=== PATIENT | female | born 1995 | race Two or more races ===

== ENCOUNTER 2018-06-06 21:43 | Emergency (ER) | payer OTHER ==
[~2018-06-06] VITALS: Ht 160 cm; Wt 136.5 kg
[~2018-06-06 21:43] MED LIST: MULT1CAP15 PO; SERT50TA PO
[2018-06-06 21:59] VITALS: BP 138/98
[2018-06-06] MEDS ORDERED: PRED20TA PO (22:11)
[2018-06-06] MEDS ORDERED: VALA10005 PO (22:11)
--- NOTE | 2018-06-06 22:11 | PHYS DOC ---
Past History Past Medical History: Anxiety, Depression Past Surgical History: No Surgical History Smoking: Less than 1pk/day Alcohol Use: Occasionally Drug Use: Marijuana Adult General Chief Complaint Chief Complaint: FACE PROBLEM HPI HPI Patient is a [age] year old [sex] who presents with [] Review of Systems Review of Systems Constitutional: Denies fever or chills [] Eyes: Denies change in visual acuity, redness, or eye pain [] HENT: Denies nasal congestion or sore throat [] Respiratory: Denies cough or shortness of breath [] Cardiovascular: No additional information not addressed in HPI [] GI: Denies abdominal pain, nausea, vomiting, bloody stools or diarrhea [] : Denies dysuria or hematuria [] Musculoskeletal: Denies back pain or joint pain [] Integument: Denies rash or skin lesions [] Neurologic: Denies headache, focal weakness or sensory changes [] Endocrine: Denies polyuria or polydipsia [] All other systems were reviewed and found to be within normal limits, except as documented in this note. Allergies Allergies Allergies Coded Allergies Type Severity Reaction Last Updated Verified No Known Drug Allergies 06/05/13 No Physical Exam Physical Exam Constitutional: Well developed, well nourished, no acute distress, non-toxic appearance. [] HENT: Normocephalic, atraumatic, bilateral external ears normal, oropharynx moist, no oral exudates, nose normal. [] Eyes: PERRLA, EOMI, conjunctiva normal, no discharge. [] Neck: Normal range of motion, no tenderness, supple, no stridor. [] Cardiovascular:Heart rate regular rhythm, no murmur [] Lungs & Thorax: Bilateral breath sounds clear to auscultation [] Abdomen: Bowel sounds normal, soft, no tenderness, no masses, no pulsatile masses. [] Skin: Warm, dry, no erythema, no rash. [] Back: No tenderness, no CVA tenderness. [] Extremities: No tenderness, no cyanosis, no clubbing, ROM intact, no edema. [] Neurologic: Alert and oriented X 3, normal motor function, normal sensory function, no focal deficits noted. [] Psychologic: Affect normal, judgement normal, mood normal. [] EKG EKG [] Radiology/Procedures Radiology/Procedures [] Course & Med Decision Making Course & Med Decision Making Pertinent Labs and Imaging studies reviewed. (See chart for details) [] Dragon Disclaimer Dragon Disclaimer This electronic medical record was generated, in whole or in part, using a voice recognition dictation system. Departure Departure: Impression: Primary Impression: Peterson's palsy Disposition: 01 HOME, SELF-CARE Condition: STABLE Referrals: MARELY AMADOR MD (PCP) Patient Instructions: Peterson's Palsy Scripts Prednisone (PREDNISONE) 20 Mg Tablet 2 TAB PO BID for inflammation, #24 TAB Prov: HEATHER LOGAN Jr. DO 06/06/18 Valacyclovir Hcl (VALTREX) 1,000 Mg Tablet 1 TAB PO BID for infection, #14 TAB Prov: HEATHER LOGAN Jr. DO 06/06/18 HEATHER LOGAN Jr. DO Jun 06, 2018 22:11
[2018-06-06] MEDS ORDERED: predniSONE 20 MG TABLET PO ONE (22:30)
[2018-06-06] MEDS ORDERED: valACYclovir 500 MG TABLET. PO ONE (22:30)
== END 2018-06-06 23:11 | disposition home or self-care (01) ==
LOC: ER 21:43
DX: G51.0 Bell's palsy (principal); F41.9 Anxiety disorder, unspecified; F32.9 Major depressive disorder, single episode, unspecified; F17.200 Nicotine dependence, unspecified, uncomplicated
CPT/HCPCS: 99283; J7512